=== PATIENT | male | born 1960 | race Caucasian/White ===

== ENCOUNTER 2019-10-17 13:35 | Inpatient (IN) ==
[2019-10-17] MEDS ORDERED: ASPIRIN PO ONE (13:52)
[2019-10-17] MEDS ORDERED: ASPIRIN PR ONE (13:52)
--- NOTE | 2019-10-17 14:04 | EKG Report ---
Test Performed on : 10/17/2019 1:51:05 PM Test Reason : SOB Blood Pressure : / mmHG Vent. Rate : 078 BPM Atrial Rate : 078 BPM P-R Int : 152 ms QRS Dur : 094 ms QT Int : 378 ms P-R-T Axes : 051 010 069 degrees QTc Int : 430 ms Sinus rhythm. with frequent premature ventricular complexes. Septal infarct , age undetermined Abnormal ECG No previous ECGs available Unconfirmed Result
[2019-10-17 14:07] LABS: BASO# 0.03 X1000 (0.0-0.2); BASO% 0.5 % (0.0-0.8); EOS# 0.13 X1000 (0.0-0.7); HEMATOCRIT 38.1 % (42.0-52.0); HEMOGLOBIN 12.8 g/dL (14.0-18.0); LYMPH# 1.46 X1000 (1.2-3.4); LYMPH% 22.6 % (20.5-51.1); MCHC 33.6 g/dL (33-37); MCV 89.4 FL (81-99); MONO% 4.6 % (1.7-9.3); MPV 9.4 FL (7.4-10.4); NEUT# 4.54 X1000 (1.4-6.5); NEUT% 70.3 % (42.2-75.2); PLT 181 X1000 (130-400); RBC 4.26 XMIL (4.7-6.1); RDW 12.2 % (11.5-14.5); WBC 6.46 X1000 (4.8-10.8)
--- NOTE | 2019-10-17 14:13 | Diag Imaging Result Doc PS360 ---
CHEST-2 VIEWS - 10/17/2019 INDICATION: SOB COMPARISON: None FINDINGS: There are median sternotomy wires. The lungs are clear. Heart size is normal. No pneumothorax or pleural effusion. IMPRESSION: Negative exam. Electronically signed by Sam Thompson 10/17/2019 2:11 PM
[2019-10-17 14:18] LABS: INR 1.03; PROTIME 13.7 Seconds (11.0-16.0)
[2019-10-17 14:19] LABS: PTT 28.6 Seconds (22.3-41.8)
[2019-10-17 14:32] LABS: AGAP 14; ALBUMIN 4.1 g/dL (3.5-5.0); ALKALINE PHOSPHATASE 79 U/L (32-122); BUN 17 mg/dL (8-22); CALCIUM 8.7 mg/dL (8.8-10.2); CHLORIDE 99 mmol/L (98-107); COSMO 279; CREATININE 1.2 mg/dL (0.7-1.2); ESTIMATED GFR > 60; GLUCOSE 256 mg/dL (70-104); GOT 28 U/L (10-34); GPT 22 U/L (10-44); POTASSIUM 4.5 mmol/L (3.5-5.1); SODIUM 134 mmol/L (136-145); TCO2 21 mmol/L (25-35); TOTAL PROTEIN 6.2 g/dL (6.3-8.3)
[2019-10-17 14:49] LABS: CK PROFILE 471 U/L (24-204)
[2019-10-17 15:03] LABS: CK INDEX 1.6 (0.0-2.5); CK-MB 7.58 ng/mL (0.0-5.0)
--- NOTE | 2019-10-17 17:10 | PROVIDER DOCUMENTATION ---
This chart was entered by Iwona Simmons Scribe, acting as scribe for Timbo Muniz MD. HPI-Respiratory General - General Chief Complaint: Shortness of Breath Stated Complaint: SOB--HEART PATIENT Time Seen by Provider: 10/17/19 14:23 Source: patient Allergies/Adverse Reactions: Patient Allergies Allergy/AdvReac Type Severity Reaction Status Date / Time No Known Allergies Allergy Verified 10/17/19 16:17 - History of Present Illness-Resp Nature of Presenting Problem: Patient is a 59 year old male who presents with shortness of breath. States chest tightness with shortness of breath that is worse with movement/exertion. Reports symptoms have been present for 3 days. History of DE 10 years ago with bypass surgery. States current symptoms are similar to symptoms when he had his prior DE. Denies radiation of pain, fever, swelling, recent travel, and history of blood clots. The patient no nausea or sweats or productive cough or blood. Last stress test years ago, and last cath years ago. Quality of Pain: reports: tightness Severity in ED: reports: mild Onset/Duration: reports: 3 days ago Timing: reports: still present Cough Quality/Degree: reports: mild, dry cough Modifying Factors: worse with: exertion Associated Symptoms: reports: chest pain/soreness (chest tightness), shortness of breath Similar Symptoms Previously?: Yes Recently seen or treated by another doctor?: No Review of Systems - Adult - REVIEW OF SYSTEMS - ADULT Constitutional: reports: no symptoms reported. denies: fever Eyes: reports: no symptoms reported. denies: eye pain Ears, Nose, Mouth & Throat: reports: no symptoms reported. denies: throat pain Cardiovascular: reports: chest pain Respiratory: reports: see HPI, cough, shortness of breath Gastrointestinal: reports: no symptoms reported. denies: abdominal pain, nausea, vomiting Genitourinary: reports: no symptoms reported. denies: flank pain Musculoskeletal: reports: no symptoms reported. denies: back pain Integumentary: reports: no symptoms reported Neurological: reports: no symptoms reported. denies: headache/migraines Psychiatric: reports: no symptoms reported. denies: alcohol/drug dependence Endocrine: reports: no symptoms reported Hematologic/Lymphatic: reports: no symptoms reported, other (no blood noted) Allergic/Immunologic: reports: no symptoms reported, other (no swelling noted) Past History - Adult - PAST MEDICAL HISTORY-ADULT Review of Records: reports: Old Records Reviewed (no previous records noted) Cardiovascular: reports: CAD, DE Endocrine/Immune: reports: Diabetes Other Conditions: reports: denies history - PRIOR SURGERIES/PROCEDURES Surgical/Procedure History: reports: reviewed, not pertinent - IMMUNIZATION STATUS Childhood Immunizations: See Nurse Assessment Flu Vaccine: See Nurse Assessment - FAMILY HISTORY Family History: diabetes, other (DE) - SOCIAL HISTORY Smoking: denies Substance Use: alcohol Alcohol Use Frequency: every day Number of drinks per typical drinking period:: 1 drink Physical Exam-General - PHYSICAL EXAM-ADULT Initial Vital Signs Reviewed: Yes - CONSTITUTIONAL General Appearance: appears well, alert, no apparent distress - EYES Eyes: negative: conjuctival exudate, photophobia, scleral icterus - HEAD, EARS, NOSE, MOUTH & THROAT HENMT: normocephalic/atraumatic, moist mucous membranes, pharynx normal. ne gative: hearing deficit, pharyngeal erythema - RESPIRATORY Respiratory: chest non-tender, lungs clear, normal breath sounds, no respiratory distress. negative: crackles, stridor, wheezing - CARDIOVASCULAR Cardiovascular: regular rate, rhythm, systolic murmur - GASTROINTESTINAL (ABDOMEN) Abdominal Exam: non tender, soft. negative: guarding, tenderness - MUSCULOSKELETAL Extremity: non-tender (LE), normal inspection (LE) - SKIN Integumentary: normal color, warm/dry - NEUROLOGIC Neurologic: grossly normal - PSYCHIATRIC Psych/Mental Status: normal mood/affect, normal thought content, normal thought process - HEART Score HEART Score: History: Highly Suspicious HEART Score: ECG: Normal HEART Score: Age: 45-65 Years HEART Score: Risk Factors for Atherosclerotic Disease: > or = 3 Risk Factors or History of Atherosclerotic Disease HEART Score: Troponin: < or = Normal Limit Total HEART Score:: 5 Progress - PLAN OF CARE/RESULTS Progress/Plan/Lab Results: Vital Signs - 8 hr 10/17/19 13:45 10/17/19 15:16 10/17/19 15:33 Temperature 98.5 F Pulse Rate 71 77 64 Respiratory Rate 20 14 12 Blood Pressure 132/66 159/68 139/68 O2 Sat by Pulse Oximetry 97 99 99 Laboratory Results - last 24 hr 10/17/19 10/17/19 10/17/19 13:53 13:53 13:53 WBC 6.46 RBC 4.26 L Hgb 12.8 L Hct 38.1 L MCV 89.4 MCH 30.0 MCHC 33.6 RDW Std Deviation 12.2 Plt Count 181 MPV 9.4 Immature Gran % (Auto) 0.0 Neut % (Auto) 70.3 Lymph % (Auto) 22.6 [place] % (Auto) 4.6 Eos % (Auto) 2.0 Baso % (Auto) 0.5 Immature Gran # (Auto) 0.00 Neut # (Auto) 4.54 Lymph # (Auto) 1.46 [place] # (Auto) 0.30 Eos # (Auto) 0.13 Baso # (Auto) 0.03 PT INR PTT (Actin FS) Sodium 134 L Potassium 4.5 Chloride 99 Carbon Dioxide 21 L Anion Gap 14 BUN 17 Creatinine 1.2 Estimated GFR/1.73 m2 > 60 BUN/Creatinine Ratio 14 Glucose 256 H Calculated Osmolality 279 Calcium 8.7 L Total Bilirubin 0.30 AST 28 ALT 22 Alkaline Phosphatase 79 Creatine Kinase 471 H Creatine Kinase Index 1.6 CK-MB (CK-2) 7.58 H Troponin T [id number] Pept 254 H Total Protein 6.2 L Albumin 4.1 Globulin 2.1 Albumin/Globulin Ratio 2.0 10/17/19 10/17/19 13:53 13:53 WBC RBC Hgb Hct MCV MCH MCHC RDW Std Deviation Plt Count MPV Immature Gran % (Auto) Neut % (Auto) Lymph % (Auto) [place] % (Auto) Eos % (Auto) Baso % (Auto) Immature Gran # (Auto) Neut # (Auto) Lymph # (Auto) [place] # (Auto) Eos # (Auto) Baso # (Auto) PT 13.7 INR 1.03 PTT (Actin FS) 28.6 Sodium Potassium Chloride Carbon Dioxide Anion Gap BUN Creatinine Estimated GFR/1.73 m2 BUN/Creatinine Ratio Glucose Calculated Osmolality Calcium Total Bilirubin AST ALT Alkaline Phosphatase Creatine Kinase Creatine Kinase Index CK-MB (CK-2) Troponin T < 0.010 [id number] Pept Total Protein Albumin Globulin Albumin/Globulin Ratio Orders Category Date Time Status Cardiac Monitoring DIRECTED Care 10/17/19 13:52 Active Oxygen Therapy- ED Nursing DIRECTED Care 10/17/19 13:52 Active Saline Loc NOW Care 10/17/19 13:52 Active CHEST-2 VIEWS [RAD] Stat Exams 10/17/19 13:52 Completed CBC WITH ELECTRONIC DIFF [HEME] Stat Lab 10/17/19 13:53 Completed CK PROFILE [SP CHEM] Stat Lab 10/17/19 13:53 Completed COMPREHENSIVE METABOLIC PANEL [CHEM] Stat Lab 10/17/19 13:53 Completed PRO B-NATRIURETIC PEPTIDE Stat Lab 10/17/19 13:53 Completed PROTIME WITH INR [COAG] Stat Lab 10/17/19 13:53 Completed PTT [COAG] Stat Lab 10/17/19 13:53 Completed TROPONIN T Stat Lab 10/17/19 13:53 Completed TROPONIN T Stat Lab 10/17/19 16:35 Received Aspirin Med 10/17/19 13:52 Discontinued 300 mg NV NOW ONE Aspirin Med 10/17/19 13:52 Discontinued 325 mg PO NOW ONE CP/SOB/Palp >45 yrs of Age Stat Oth 10/17/19 13:52 Ordered EKG [EKG] Stat Ther 10/17/19 13:52 Draft Result Diagrams: 10/17/19 13:53 10/17/19 13:53 - REASSESSMENT Reassessment #1 Status: other (Reviewed scribe note. Currently minimal chest pain and ST or troponin elevation. Given patient elevated risk with hx of bipass as well as HEART score of 5 will plan for admission for stress testing or evaluation by cardiology team.) - EKG 1 Time of EKG reading by physician:: 13:51 EKG Read and Signed by:: Timbo Muniz EKG Interpretation (*Must complete 3 of following elements*): Abnormal Rate: 78 Rhythm: sinus rhythm with frequent premature ventricular complexes [place]: normal NV Interval: normal Comments: no STEMI - XRAY 1 XRAY Study: Chest Impression: See EMR Report ( CHEST-2 VIEWS - 10/17/2019 INDICATION: SOB COMPARISON: None FINDINGS: There are median sternotomy wires. The lungs are clear. Heart size is normal. No pneumothorax or pleural effusion. IMPRESSION: Negative exam. Electronically signed by Sam Thompson 10/17/2019 2:11 PM 10/17/19 1411 Interpreting Physician: Sam Thompson MD Dictated Date/Time: 10/17/19 1410 cc: Vinod Ivey MD; Cristopher Oh MD) - CONSULTS/PCP/HOSPITALIST Notification #1 *Consult/PCP/Hospitalist*: ROMAINE Peterson for Hospitalist Time Discussed: 17:02 Reason/Comments: Dr. Muniz consulted with Kristen about patient. Consult Disposition: Will see in ED, Admit Departure - Departure Date of Disposition Decision: 10/17/19 Time of Disposition Decision: 17:08 DIAGNOSIS: Chest pain Qualifiers: Chest pain type: unspecified Qualified Code(s): R07.9 - Chest pain, unspecified Disposition: ADMITTED INPATIENT 09 Certified Medical Emergency: Emergent Condition: Fair Referrals and Follow-Ups: Cristopher Oh MD [Primary Care Provider] - - Critical Care Note This patient required my direct & personal management of CC.: No Attestation - Physician/ KYRA Attestation Patient care was provided by Advanced Practice Provider:: No The physician spent face to face time with patient:: Yes Advanced Practice Provider documentation review:: Supervising physician onsite and consulted in the evaluation and care of this patient. The physician did have a face to face encounter with the patient. This chart was documented by the indicated scribe, (Iwona Simmons Scribe) and accurately reflects the services I performed and decisions made by me, Timbo Muniz MD, as attested by the provider's signature.
--- NOTE | 2019-10-17 19:58 | HISTORY AND PHYSICAL ---
CHIEF COMPLAINT: Chest pain, shortness of breath. HISTORY OF PRESENT ILLNESS: This is a 59-year-old gentleman who presents to the emergency room complaining of intermittent chest tightness and shortness of breath with movement and exertion. This has been present for 3 days. His symptoms have waxed and waned. He states that once symptoms appear, with rest they will subside. He denied any palpitations, any fevers or chills, a productive cough. He denied any radiation of tightness. Mr. Banks has a history of an DE and is status post coronary artery bypass graft 10 years ago. He has had no followup catheterization nor stress testing since surgery. PAST MEDICAL HISTORY: 1. Coronary artery disease with DE, status post coronary artery bypass graft 10 years ago. 2. Diabetes mellitus. 3. Hypothyroid. PAST SURGICAL HISTORY: Coronary artery bypass grafting 10 years ago. SOCIAL HISTORY: He denies any alcohol, tobacco, or illicit drug use. ALLERGIES: No known drug allergies. HOME MEDICATIONS: A list will be obtained by the nursing staff. Once verified and reviewed, will restart as appropriate. REVIEW OF SYSTEMS: Discussed with patient with pertinent positives stated in the HPI. He denied any syncope or dizziness, any palpitations, a productive cough, any fevers or chills, PND or orthopnea, any nausea, vomiting, diarrhea, constipation, black or bloody vomitus or stools, any hematuria, dysuria, frequency, urgency. PHYSICAL EXAMINATION: GENERAL: This is a 59-year-old gentleman who is sitting up on the stretcher in the emergency room in no distress. VITAL SIGNS: Blood pressure is 123/67 with a heart rate of 76, respirations are 18, temperature is 98.5 degrees oral, with room air saturations 97% to 99%. HEENT: Head is normocephalic, atraumatic. Mucous membranes are moist. NECK: Supple with trachea midline. CARDIOVASCULAR: Regular rate and rhythm. S1 and S2 appreciated. He has no lower extremity edema. Calves are nontender bilaterally with peripheral pulses palpable x4 extremities. PULMONARY: Breath sounds are clear. No increased work of breathing noted. Chest rises and falls symmetrically with respiration. Chest wall is nontender to palpation. GASTROINTESTINAL: Abdomen is soft, nontender, and nondistended with bowel sounds in all 4 quadrants. NEUROLOGIC: He is alert and oriented x3. SKIN: Warm and dry. LABS: WBC is 6.4 with hemoglobin 12.8, hematocrit 38.1, and platelets of 181,000. Sodium 134, potassium 4.5, BUN 17, creatinine 1.2, with a glucose of 256. Troponins are negative on multiple occasions. Chest x-ray revealed median sternotomy wires. Lungs are clear. Heart size is normal. No pneumothorax or pleural effusions seen. EKG revealed sinus rhythm at a rate of 78. ASSESSMENT: 1. Chest pain. 2. Coronary artery disease, status post myocardial infarction 10 years ago. 3. Shortness of breath. 4. Hypothyroid. 5. Diabetes mellitus. PLAN: 1. The patient will be admitted to the hospital, placed on telemetry. 2. We will continue to trend cardiac profile and troponin. 3. We will check an electrocardiogram in the morning. 4. We will update and confirm his home medications and continue these as appropriate. 5. Pattern blood glucose with sliding scale insulin. 6. Check a CBC and BMP in the morning. 7. We will place him on a diabetic diet. 8. In review of patient's old records, he does have a history of drinking alcohol daily. We will check a blood alcohol. 9. Further treatments pending hospital course. Plan was discussed with Dr. Turpin. Dictated by ROMAINE Perez for Gavin Gomes MD cc: ROMAINE Perez MD
[2019-10-17] MEDS ORDERED: ASPIRIN ONE (20:06)
--- NOTE | 2019-10-17 20:14 | HISTORY AND PHYSICAL ---
ADDENDUM: The patient was seen and examined by me [id number]. All the laboratory, vital signs and images were reviewed. The patient presented to the emergency department with pressure-like chest pain that has been getting worse for the past week or so with physical activity. He is not a smoker, but he had a double bypass done 10 years ago I think in [place]. He has a primary care doctor and also he has been seen here by one of our cardiologists as an outpatient, Dr. Russ Gupta, who recommended to do a stress test, but he could not afford that. At this moment he is resting comfortably in bed. His vital signs are stable as well as his troponins. CK is a little bit elevated as well as the CK-MB, 7.5. He is not complaining of chest pain and I do not see any EKG changes. X-ray seems to be fine. He has been having dry cough, though. I do not see any ST elevation or depression. I will continue to monitor the troponins as well as the CK profile. I will get a new EKG in the morning and I will consult the Cardiology Department to evaluate this patient, since he has a history of coronary artery disease, he has diabetes type 1, controlled by his insulin pump, and his pain and shortness of breath sounds cardiac. I agree with the rest of the nurse practitioner's assessment and plan. cc: Gavin Gomes MD
[2019-10-17 21:24] LABS: CK INDEX 1.8 (0.0-2.5); CK-MB 7.46 ng/mL (0.0-5.0)
[2019-10-17] MEDS: HUMALOG SUBQ SCH (21:48)
[2019-10-18 02:43] LABS: CK INDEX 1.8 (0.0-2.5); CK-MB 6.25 ng/mL (0.0-5.0)
[2019-10-18 06:21] LABS: HEMATOCRIT 39.4 % (42.0-52.0); HEMOGLOBIN 13.3 g/dL (14.0-18.0); MCH 30.3 PG (27-31); MCHC 33.8 g/dL (33-37); MCV 89.7 FL (81-99); MPV 9.9 FL (7.4-10.4); RBC 4.39 XMIL (4.7-6.1); RDW 12.1 % (11.5-14.5); WBC 5.77 X1000 (4.8-10.8)
[2019-10-18] MEDS: SYNTHROID PO SCH (06:25)
[2019-10-18] MEDS: HUMALOG SUBQ SCH ×4 (06:25→21:10)
[2019-10-18 06:31] LABS: HEMOGLOBIN A1C 7.4 % (4.8-6.0)
[2019-10-18 07:15] LABS: AGAP 11; BUN 17 mg/dL (8-22); CALCIUM 8.7 mg/dL (8.8-10.2); CHLORIDE 106 mmol/L (98-107); CHOLESTEROL 117 mg/dL (0-200); COSMO 286; CREATININE 1.1 mg/dL (0.7-1.2); ESTIMATED GFR > 60; GLUCOSE 90 mg/dL (70-104); HDL 55 mg/dL (35-55); LDL 51 mg/dL; POTASSIUM 4.3 mmol/L (3.5-5.1); SODIUM 143 mmol/L (136-145); TCO2 26 mmol/L (25-35); TRIGLYCERIDES 54 mg/dL (39-160); VLDL 11 mg/dL
[2019-10-18] MEDS: ASPIRIN PO SCH (08:00)
[2019-10-18] MEDS: LIPITOR PO SCH (08:00)
[2019-10-18] MEDS: SINGULAIR PO SCH (08:00)
--- NOTE | 2019-10-18 08:27 | EKG Report ---
Test Performed on : 10/18/2019 06:29:09 AM Test Reason : CP Blood Pressure : / mmHG Vent. Rate : 083 BPM Atrial Rate : 083 BPM P-R Int : 158 ms QRS Dur : 096 ms QT Int : 376 ms P-R-T Axes : 069 021 076 degrees QTc Int : 441 ms Sinus rhythm. with frequent premature ventricular complexes. Septal infarct (cited on or before 17-OCT-2019) Abnormal ECG When compared with ECG of 17-OCT-2019 13:51, (Unconfirmed) No significant change was found Confirmed by Emma BUTLER, Pio ([id number]) on 10/20/2019 8:32:05 AM
--- NOTE | 2019-10-18 08:52 | PROGRESS NOTE ---
DATE: 10/18/2019 SUBJECTIVE: No acute events overnight. This patient's chest pain is much better. He is not complaining of chest discomfort at this moment, but as per the patient, his pain comes with some physical activity. EKG done today showed some PVCs, but no ST changes. Troponins are negative x5 actually. CK-MB is slightly elevated. OBJECTIVE: Vital Signs: Temperature 97.6 degrees, pulse 77, respiratory rate 15, blood pressure 133/67, oxygen saturation 99 on room air. HEENT: Head normocephalic, no trauma. PERRLA. Neck: Supple. No JVD. No masses. Central trachea. Chest: Clear to auscultation. No wheezing. No rales. Abdomen: Soft, nontender, nondistended. No hepatosplenomegaly. Extremities: Trace edema. No clubbing, no cyanosis. Neurological: The patient is alert and oriented x3. No focal neurological deficits. LABORATORY: WBC 5.7, hemoglobin 13.3, hematocrit 39.4, platelets 189,000. Sodium 143, potassium 4.3, chloride 106, bicarbonate 26, BUN 17, creatinine 1.1, glucose 90, calcium 8.7. Troponin negative x5. ASSESSMENT AND PLAN: 1. Chest pain in a patient with medical history of coronary artery disease status post coronary artery bypass graft around 10 years ago. This patient is feeling pressure mostly with physical activity. Electrocardiograms and lab work seems to be stable. A little bit elevated CK-MB though. I have requested an evaluation by Cardiology Department. Likely, this patient will need a stress test done and/or cardiac catheterization to rule out any new problems. 2. History of coronary artery disease status post CABG 10 years ago as above. 3. Type 1 diabetes, controlled. Hemoglobin A1c is 7.4. Continue with his insulin pump. 4. Hypothyroidism. Continue with same management. 5. Obesity with a body mass body mass index of 34.7, aware. The patient seems to be stable, but he has been having chest pain, pressure-like for some time now, and it looks like it is getting worse with minimal physical activity. Cardiology department has been consulted. cc: Gavin Gomes MD
[2019-10-18] MEDS ORDERED: BLISTEX MEDICATED BERRY LIP BALM TOP PRN (11:40)
--- NOTE | 2019-10-18 13:08 | CARDIOLOGY CONSULTATION ---
DATE: 10/18/2019 REQUESTING PHYSICIAN: Hospitalist service. PRIMARY SHORE WORKER: Dr. Russ Gupta. PRIMARY CARE PHYSICIAN: Dr. Cristopher Oh. REASON FOR CONSULTATION: Chest discomfort. HISTORY OF PRESENT ILLNESS: Mr. Banks is a pleasant 59-year-old male who presented to the emergency room at about 6:50 p.m. last night, October 17, complaining that for several days, about 2 weeks at least, he has been experiencing increasing exertional discomfort in the chest. Initially, short of breath and lately a sensation of tightness and heaviness. Yesterday, he picked up a heavy desk with his son from his patio deck and set it on a pickup truck. He said that he may have lifted about 100 pounds of weight. After that, he started having more symptoms. At the time of admission, they did an EKG that shows sinus rhythm with frequent PVCs, which he was not aware of having. They seem to be presenting in a quadrigeminy pattern, trigeminy pattern and even bigeminy at times. He has not felt palpitations or syncope. No dizziness. No edema. His troponin levels have been checked a total of 5 times. They are all normal. His proBNP level is slightly elevated at 254 pg/mL. The upper normal range is 177. CPK was slightly elevated, initially 471 units and he has dropped to 338 units. His CK index is 1.8% indicating that it is probably not cardiac. CK-MB fraction was a little high at 7.58 and then dropped to 6.259 ng/mL. He is LDL cholesterol is 51 mg/dL, HDL is 55 mg/dL, triglycerides 54, and cholesterol 117 mg/dL. His BUN and creatinine are normal. This morning he is feeling better. He is asking whether or not he can go home. Subsequent EKG done today at 6:29 in the morning shows sinus rhythm with frequent PVCs in the trigeminy and bigeminy pattern. There is no ST-T segment shifts and no indication of a scar. PAST MEDICAL HISTORY: Positive for severe coronary artery disease. Somewhere around 2009 he underwent heart catheterization that showed 50% left main stenosis, total occlusion of the left circumflex, a large dominant right coronary artery and he underwent a double bypass procedure in [place], 06/13/2010. He received a mammary graft to LAD and vein graft to the obtuse marginal system. Subsequently, he underwent a followup heart catheterization because of concern that he could be having recurrent symptoms and they found that the grafts were patent. In 2015, he was seen by his physicians in [place] associated with [facility] in [place], [place]. They did a myocardial perfusion stress test that showed fixed inferior deficit that appeared to be attenuation artifact. Since then, the patient has not had any further symptoms until December 2017 when he came to visit Dr. Russ Gupta for the first time and Dr. Gupta advised a followup stress test which unfortunately he could not complete due to insurance issues. The patient has no history of hypertension. The patient does not tolerate antihypertensive drugs well. He has diabetes mellitus type 1 since the age of 13 and he has been controlling his blood sugar relatively well. His hemoglobin A1c is 7.4% today. He has an insulin pump system and he takes an average of 45 units of basal insulin and anywhere from 70 to 75 total units daily. He has also been diagnosed with sleep apnea syndrome and he is using a CPAP system. His weight has remained around 240 pounds with a BMI of about 34 to 35. He has hypothyroidism. He has been diagnosed with asthma as a child and has a grownup, they did a pulmonary function test because they thought about giving him inhaled insulin at some point and he did not qualify because of decreased pulmonary function. SURGICAL HISTORY: Besides the bypass includes carpal tunnel, oral surgery, vasectomy, and foot surgery. REVIEW OF SYSTEMS: He has the beginnings of neuropathy. He does not have any history of retinal damage. He does not have any history of established kidney damage. He has not been able to tolerate well CHANDAN inhibitors because of a drop in blood pressure. Currently, he has no other major complaints. SOCIAL HISTORY: He has signed up with the [email or web address]. 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 He is to my patient, Mrs. Codi Banks and they have 4 grownup children. He is not a smoker nor a drinker. FAMILY HISTORY: Really noncontributory for the purposes of this admission. HOME MEDICATIONS: At this time include aspirin 81 mg at bedtime, Lipitor 40 mg daily, Fenofibrate 54 mg at bedtime, levothyroxine 175 mcg daily, losartan 12.5 at bedtime, montelukast 10 mg at bedtime. PHYSICAL EXAMINATION: Vital signs: Blood pressure is 133/67, temperature 97.6 degrees, pulse 77, respiration 15. Patient is awake, alert, oriented, in no distress. HEENT: Unremarkable. Chest: Sounds clear to auscultation and percussion. Heart: Sounds regular and rhythmic. No gallop or murmur. Abdomen: Nontender, soft. No masses or hepatomegaly. Extremities: Show very good pulses. No peripheral edema. Neurologic: Nonfocal. Moves 4 extremities. BLOOD WORK: As I said showed a hemoglobin of 13.3, hematocrit 39.4, RDW is 12.1, MCV 89.7. Sodium 143, potassium 4.3, BUN 17, creatinine 1.1. IMPRESSION: 1. Patient who presents with increasing chest tightness with exercise, appears to be functional class 2 to 3. This could represent recurrent angina pectoris due to progression of coronary artery disease. 2. Frequent premature ventricular contractions/ventricular arrhythmia. This is a new finding. He was not aware of having this. Could potentially be adding to the symptoms. 3. History of diabetes mellitus type 1 for almost 46 years. No evidence of significant end-organ damage at this time. He is on insulin pump. 4. History of sleep apnea syndrome on a CPAP mask, well controlled according to him. 5. Obesity. Body mass index 34 to 35. 6. Hypothyroidism. 7. History of previous coronary artery bypass procedure in 2010, mammary graft to LAD and vein graft to obtuse marginal. RECOMMENDATION: At this time, I would suggest to obtain a rest/stress Walking Lexiscan myocardial perfusion protocol to further assess his condition. I will refrain from initiating beta blockers or calcium blockers until we have the results of the echocardiogram to determine his ejection fraction. He has a slight elevation of pro BNP level which may be diastolic dysfunction due to frequent PVCs. If his stress test suggests the possibility of progression of disease, we will go ahead and schedule a heart catheterization. The patient is in agreement. Further intervention will depend on the results of the aforementioned studies. cc: MD ZENIA Lugo
[2019-10-19] MEDS: HUMALOG SUBQ SCH ×4 (06:12→21:05)
[2019-10-19] MEDS: SYNTHROID PO SCH (06:19)
--- NOTE | 2019-10-19 07:46 | ECHO REPORT ---
ORDER DATE: 10/17/2019 INTERPRETING PHYSICIAN: Dr. Johnson REQUESTING PHYSICIAN: CLINICAL INDICATIONS: This is a 59-year-old male with CHF, dyspnea, previous coronary bypass surgery. M-MODE MEASUREMENTS: Right ventricle: cm. Left ventricle end diastole: 4.4 cm. Left ventricle end systole: 2.7 cm. Posterior wall: 1.0 cm. Interventricular septum: 1.0 cm. Left atrium: cm. Aortic root: cm. Optison was added to optimize visualization of endocardium. The study was somewhat difficult. SUMMARY OF 2-DIMENSIONAL IMAGIN. The left ventricular function appears to be normal. Ejection fraction estimated at 65%. 2. Left atrium is normal. Inferior vena cava is not dilated. 3. Right-sided chambers appear to be normal. 4. The aortic valve looks normal. Color flow mapping is unremarkable. 5. Mitral valve looks normal. Color flow mapping is unremarkable. 6. Pulse wave Doppler of mitral inflow shows mild reversal of the E and the A ratio. The ratio is 0.85. 7. Tissue Doppler of sepal and lateral mitral annulus averages 7 cm. 8. Pulmonary venous flow is normal. 9. The diastolic function is deemed to be normal. 10.Pulmonic valve is unremarkable. 11.There is no pericardial effusion, mass or thrombus. CONCLUSIONS: In summary, this study shows: 1. Normal left ventricular systolic function. 2. Unremarkable aortic, pulmonic, tricuspid and mitral valves. 3. Pulmonary pressure probably normal. 4. No diastolic dysfunction. 5. Optison was added to optimize visualization of endocardium. Clinical correlation is recommended. cc: MD Gavin Lugo MD
[2019-10-19] MEDS: LIPITOR PO SCH (08:34)
[2019-10-19] MEDS: SINGULAIR PO SCH (08:34)
[2019-10-19] MEDS: ASPIRIN PO SCH (08:34)
--- NOTE | 2019-10-19 12:02 | CARDIOLOGY PROGRESS NOTE ---
DATE: 10/19/2019 CHIEF COMPLAINT: Chest discomfort. SUBJECTIVE: Mr. Banks feels relatively well today. He is not having any more discomfort in the chest. His telemetry indicates frequent PVCs; however, no ventricular tachycardia has been identified. Echocardiogram was done yesterday, and I have reviewed it. The study shows normal ejection fraction at 65% with no significant valvular abnormalities and no diastolic dysfunction. The patient is sitting upright. He is feeling fine. OBJECTIVE: Blood pressure is 108/80, temperature 97.5, respirations 17, pulse 57. He is awake, alert, oriented, no distress. HEENT is unremarkable. Chest clear to auscultation and percussion. Heart sounds regular and rhythmic. I do not hear a gallop or murmur. His abdomen is nontender. Extremities showed no edema. Neurologic: Follows commands. Moves all 4 extremities. IMPRESSION: 1. The patient presented with chest discomfort, possibly a crescendo pattern of angina pectoris. 2. History of previous coronary bypass surgery, double bypass. 3. Ventricular arrhythmia with frequent PVCs. 4. Diabetes mellitus type 1. 5. Sleep apnea syndrome. RECOMMENDATIONS: At this time, we will proceed with stress testing in the morning, and depending on the results, we will either initiate therapy with a combination of beta steph and calcium blockers or we will consider pursuing heart catheterization if the stress test suggests that he has indeed developed progression of coronary heart disease. Further advice will be forthcoming. cc: Riley Johnson MD
--- NOTE | 2019-10-19 14:36 | PROGRESS NOTE ---
DATE: 10/19/2019 SUBJECTIVE: The patient is awake, not in any obvious distress. OBJECTIVE: Vital Signs: Temperature 98.3 degrees, pulse 79, respiratory rate 17, blood pressure is 104/64, oxygen saturation is 98%. HEENT: Atraumatic, normocephalic. Cardiovascular: Distant heart sounds. Respiratory: Good air entry bilaterally. Extremities: No evidence of significant edema. Central Nervous System: No obvious focal deficit noted. LABORATORY DATA: Blood sugar is 137. ASSESSMENT AND PLAN: 1. Chest pain/coronary artery disease/status post coronary artery bypass graft. Cardiology team managing. 2. Type 1 diabetes mellitus. Monitor blood sugar levels. Continue the patient's insulin pump. 3. Hypothyroidism. Continue levothyroxine. 4. Deep vein thrombosis prophylaxis. Lovenox. 5. Gastrointestinal prophylaxis. Proton pump inhibitor. cc: Vinod Garcia MD
[2019-10-20] MEDS: SYNTHROID PO SCH (06:16)
[2019-10-20] MEDS: HUMALOG SUBQ SCH ×3 (06:17→15:33)
[2019-10-20] MEDS ORDERED: PRILOSEC PO SCH (07:00)
[2019-10-20] MEDS ORDERED: LEXISCAN ONE (08:13)
[2019-10-20] MEDS ORDERED: LOVENOX SUBQ SCH (09:00)
[2019-10-20] MEDS: LIPITOR PO SCH (10:29)
[2019-10-20] MEDS: ASPIRIN PO SCH (10:29)
[2019-10-20] MEDS: SINGULAIR PO SCH (10:29)
[2019-10-20 15:30] VITALS: BP 116/64
--- NOTE | 2019-10-20 16:47 | Diag Imaging Result Document ---
PROCEDURE NAME: MYOCARDIAL PERF SCAN, STR/REST - 10/20/2019 STUDY: Rest/stress walking Lexiscan myocardial perfusion study. INDICATION: Chest pain, preoperative coronary artery surgery. DESCRIPTION: The patient came into the nuclear lab and received a rest injection of technetium 99 sestamibi 16.4 mCi. Multiple tomographic views of the cardiac structure were obtained at rest. Subsequently the patient walked on the treadmill using a modified protocol with 45.6 mCi of technetium 99 were infused with a Lexiscan protocol of 0.4 mg of Lexiscan. Multiple tomographic views of the cardiac structure were obtained following the completion of the protocol. SUMMARY OF THE ELECTROCARDIOGRAPHIC PORTION OF THE STUDY: Resting electrocardiogram shows sinus rhythm with a rate of 84 beats per minute. Resting ECG shows sinus rhythm with PVCs. Blood pressure 110/63. During the protocol, the heart rate increased to a maximum of 112 beats per minute. Blood pressure went up to 180/85. At peak infusion, there was suggestion of sinus tachycardia without any ischemic changes. During the protocol, PVCs were noted, sometimes in bigeminy rhythm or trigeminy rhythm. The patient reported no chest pain, shortness of breath or palpitations. ECG showed no significant ischemic changes. At the completion of the test, the heart rate and blood pressure returned back to baseline. In summary, the electrocardiographic response to a walking Lexiscan protocol is normal. SUMMARY OF THE MYOCARDIAL PERFUSION PORTION OF THE STUDY: Poststress tomographic views of the left ventricle showed a mild decrease uptake of radiotracer at the level of basal, mid and epicardial inferior wall of the left ventricle. The rest images showed that this defect is fixed. The polar plots revealed the same. There is a fixed inferior wall defect of mild severity. There is no evidence of inducible ischemia. The perfusion of the anterior wall, the lateral wall, the apex and the septum is normal. The review of the rotating/raw images showed elevation of the diaphragm. The inferior wall defect is likely to related to diaphragmatic attenuation. There is no inducible ischemia. The gated SPECT on the rest images show ejection fraction of 66%. Post stress is 74%. The ventricular volumes are normal. There is no wall motion abnormality. Using the alternative protocol myometrics, the resting ejection fraction is 55%, post stress is 71%. Again, ventricular volumes are normal. Lung/heart ratio is normal. TID is normal. IMPRESSION: In summary, this study showed: 1. Normal electrocardiographic response to a walking Lexiscan protocol. PVCs were noted during the study. 2. Essentially normal poststress myocardial perfusion scan. There is no scintigraphic evidence of pharmacologic-induced myocardial ischemia. The mild inferior wall defect that appears to be diffusely involving the inferior wall is more likely due to diaphragmatic attenuation artifact. Possibly a ramp artifact also can not be entirely excluded since the liver was relatively hot and its dome was projecting in the same horizontal plane as the inferior wall. 3. Normal left ventricular systolic function with ejection fraction estimated on the poststress images at 74% with normal ventricular volumes, and no wall motion abnormality. Clinical correlation is strongly recommended. cc: Riley Johnson MD MTDD
--- NOTE | 2019-10-20 20:47 | CARDIOLOGY PROGRESS NOTE ---
DATE: 10/20/2019 CHIEF COMPLAINT: Chest pain. SUBJECTIVE: Mr. Banks is doing better today. He is not having anymore complaints. OBJECTIVE: Blood pressure is 116/64, temperature 97.9, pulse 83, respirations 16. He is awake, alert and oriented, no distress. HEENT is unremarkable. Chest sounds clear to auscultation and percussion. Heart sounds are regular and rhythmic. No gallop or murmur. Abdomen is nontender. Extremities show no edema. Neurologic: Follows commands. Moves all four extremities. DIAGNOSTIC DATA: His stress test today using myocardial perfusion imaging shows normal ejection fraction at 74% on the poststress images, 63% on the rest images. There is no evidence of any perfusion ischemic abnormality. There is some attenuation artifact involving the inferior wall. IMPRESSION: 1. The patient presented with chest pain that sounds concerning for angina pectoris. 2. Previous bypass surgery. 3. Ventricular arrhythmia with frequent premature ventricular contractions. 4. Diabetes mellitus type 1. 5. Sleep apnea syndrome. RECOMMENDATIONS: At this time, given the normal stress, I feel confident that he would be treated medically. The prognosis is good because his ejection fraction is quite normal. I would suggest to try a low-dose diltiazem CD 120 mg to help minimize his PVCs. We will probably see him at the office and arrange for outpatient loop recorder monitor. At this time, he may be discharged and we will follow him at the office. Thank you again for the opportunity to participate in his evaluation. cc: Riley Johnson MD
--- NOTE | 2019-10-21 18:13 | DISCHARGE SUMMARY ---
ADMISSION DATE: 10/17/2019 DISCHARGE DATE: 10/20/2019 CONSULTS: Cardiology, Dr. Johnson. PROCEDURES: Cardiac stress test which showed only mild inferior wall defect which was favored to be diaphragmatic attenuation rather than real. Normal EF. No signs of ischemia that were felt to be accurate. Echocardiogram with also normal EF. No diastolic dysfunction. No significant valvular abnormalities. Chest x-ray with no acute process. Troponins negative x4. CBC unremarkable aside from minimal anemia, hemoglobin 13.3. A1c 7.4. Normal LFTs. Minimally elevated CK on admission, 423 down to 338 on recheck. Minimally elevated BNP at 254. Normal thyroid function. Unremarkable cholesterol panel. DISCHARGE DIAGNOSES: 1. Chest pain. 2. Diabetes. 3. Hypothyroidism. 4. Obesity. 5. Obstructive sleep apnea. HOSPITAL COURSE: The patient presented with complaints of intermittent chest tightness and dyspnea. The chest tightness seemed to come and go somewhat randomly without clear exacerbating or relieving features, but the shortness of breath seemed to be primarily with exertion, although not consistently with exertion. He was put in for cardiac workup given his history of VT and bypass 10+ years ago. Cardiac workup was essentially unremarkable. His initial CK was slightly elevated, but trended down on recheck. His troponins remained completely negative x4. Echo was essentially unremarkable. Cardiology was involved and recommended stress test which was performed, which showed artifact in the inferior wall, but no real issues. The patient had no further chest pain or dyspnea during this hospitalization. Cardiology recommended low-dose diltiazem and planned on arranging outpatient loop recorder to see if he may be having arrhythmias. His cardiac monitoring here was largely unremarkable. He had frequent PVCs, but no pathologic rhythms. So he was discharged home in stable condition, to follow up with Cardiology and his PCP. DISCHARGE VITAL SIGNS: Temperature 97.9 degrees, pulse 83, respirations 16, blood pressure 116/64, O2 saturation 98% on room air. DISCHARGE DIET: Cardiac. DISCHARGE MEDICATIONS: Aspirin 81 mg p.o. at bedtime, Cozaar 12.5 mg p.o. at bedtime, fenofibrate 54 mg p.o. at bedtime, atorvastatin 40 mg p.o. at bedtime, Singulair 10 mg p.o. at bedtime, insulin pump as previously arranged, Synthroid 175 mcg daily, diltiazem extended release 120 mg. FOLLOW UP AND PLAN: Patient discharging home to follow up with PCP and Cardiology. Likely loop recorder as an outpatient. TIME SPENT: Greater than 30 minutes spent arranging discharge and counseling patient.
== END 2019-10-20 18:43 | disposition home or self-care (01) ==
LOC: ED 13:35 → INTOOBSV 20:23 → 2N 20:23 → SUATTDRO 20:23 → OBSVTOIN 20:23
PROVIDERS: ATTEND Internal Medicine